=== PATIENT | female | born 1950 | race Caucasian/White ===

== ENCOUNTER → 2021-02-22 | Outpatient (CLI) | payer OTHER ==
[2014-06-21 09:10] VITALS: BP 114/74
[~2021-02-22] MED LIST: CIPR500T94 PO; CYAN500T7 PO; FESO8TAB PO; GABA-586 PO; GLUC1TAB71 PO; LEVO50TA5 PO; MULT-246 PO; ZOLP12.52 PO
--- NOTE | 2021-02-23 18:25 | RAD ---
DATE: 02/22/2021 EXAM: MAMMO [facility] SCREENING BILATERAL HISTORY: Screening COMPARISON: 09/20/2019, 09/17/2018, 09/05/2017 This study was interpreted with the benefit of Computerized Aided Detection (CAD). Breast Density: FATTY The breast parenchyma is primarily fatty replaced. Breast parenchyma level density A. FINDINGS: No mass, suspicious calcification, or architectural distortion in either breast. IMPRESSION: No evidence of malignancy. BI-RADS CATEGORY: 1 NEGATIVE RECOMMENDED FOLLOW-UP: 12M 12 MONTH FOLLOW-UP PQRS compliance statement: Patient information was entered into a reminder system with a target due date for the next mammogram. Mammography is a sensitive method for finding small breast cancers, but it does not detect them all and is not a substitute for careful clinical examination. A negative mammogram does not negate a clinically suspicious finding and should not result in delay in biopsying a clinically suspicious abnormality. "Our facility is accredited by the [employer] Mammography Program."
== END ==
LOC: MAMMO 08:56
PROVIDERS: ATTEND Family Medicine
DX: Z12.31 Encounter for screening mammogram for malignant neoplasm of breast (principal)
CPT/HCPCS: 77063; 77067

== ENCOUNTER → 2021-05-03 | Outpatient (CLI) | payer OTHER ==
[2014-06-21 09:10] VITALS: BP 114/74
--- NOTE | 2021-05-03 15:25 | RAD ---
US DPLX VENOUS EXTREMITY LOWER LT History: Reason: LLE PAIN AND SWELLING / Spl. Instructions: / History: Comparison: None. Technique: Multiple longitudinal and transverse high resolution real-time images of the venous system of left lower extremity were obtained with color and Doppler sampling. Findings: The common femoral, superficial femoral, popliteal and proximal calf veins are all patent and demonst rate normal flow and compressibility. Normal respiratory phasicity and augmentation is present. Small popliteal cyst measures 3.1 x 1.4 cm. Left lower extremity subcutaneous edema. Impression: 1. No evidence of deep vein thrombosis. Electronically signed by: Jorge Church DO (05/03/2021 3:22 PM) [facility]
== END ==
LOC: US 14:44
PROVIDERS: ATTEND Family Medicine
DX: M71.22 Synovial cyst of popliteal space [Baker], left knee (principal); M79.89 Other specified soft tissue disorders
CPT/HCPCS: 93971

== ENCOUNTER → 2021-06-11 | Outpatient (CLI) | payer MEDICARE, OTHER ==
[2014-06-21 09:10] VITALS: BP 114/74
--- NOTE | 2021-06-11 13:28 | RAD ---
Examination: LEFT LOWER EXTREMITY - UNILATERAL VENOUS DOPPLER Technique: Ultrasound evaluation of the left lower extremity was performed from the groin to the uppe r calf with beaulieu scale, spectral and color doppler evaluation. Indication: Leg swelling Comparison: None Findings: There is normal venous flow and compressibility of left common femoral vein, femoral vein, popliteal vein, and visualized proximal calf veins. Cystic structure posterior left knee likely Vicente's cyst. Impression: No evidence for deep vein thrombosis of left lower extremity from the level of the calf v eins to the groins. Electronically signed by: Surendra Newell MD (06/11/2021 1:25 PM) [id number]
== END ==
LOC: US 12:46
PROVIDERS: ATTEND Family Medicine
DX: M79.662 Pain in left lower leg (principal); M79.89 Other specified soft tissue disorders
CPT/HCPCS: 93971